=== PATIENT | male | born 1965 | race Caucasian/White ===

== ENCOUNTER 2019-01-12 10:03 | Emergency (ER) | payer BC ==
[~2019-01-12] VITALS: Ht 182.9 cm; Wt 80.0 kg
[~2019-01-12 10:03] MED LIST: IBUP-1542 PO
[2019-01-12 10:10] VITALS: BP 121/83; PULSE 99; RESP 18; Ht 182.9 cm; Wt 80.0 kg
[2019-01-12] MEDS ORDERED: KETOROLAC 60 MG INJ IM STA (11:27)
== END 2019-01-12 12:06 | disposition home or self-care (01) ==
LOC: FTE 10:03
DX: B34.9 Viral infection, unspecified (principal); Z87.891 Personal history of nicotine dependence
CPT/HCPCS: 96372; 99284; J1885